=== PATIENT | female | born 1975 | race Two or more races ===

== ENCOUNTER 2021-02-28 07:57 | Emergency (ER) | payer BC, MEDICAID, SELFPAY ==
[~2021-02-28] VITALS: Ht 157.5 cm; Wt 62.4 kg
--- NOTE | 2021-02-28 08:12 | NUR ---
Task RN: pt reports that she has nbeen having intermittent chest burning x3 days afteer revcieving her first COVID vaccine. no SOB. pt reports that her B/P has been high, but hs has hx of same. pt has not been compliantt with her B/P meds at home. pink warm and dry. ambulatory. SO at bedside. Dr Osullivan at bedside for eval
[2021-02-28] MEDS ORDERED: ASPIRIN 81 MG TABLET CHEW PO ONE (08:30)
[2021-02-28] MEDS ORDERED: SODIUM CHLORIDE FLUSH 10ML SYR IVF ONE (08:30)
[2021-02-28] MEDS ORDERED: KETOROLAC 30 MG/1 ML IVPush ONE (08:30)
[2021-02-28] MEDS ORDERED: ASPIRIN 81 MG TABLET CHEW ONE (08:37)
[2021-02-28] MEDS ORDERED: KETOROLAC 30 MG/1 ML ONE (08:37)
[2021-02-28 08:43] LABS: BASOPHILS % (AUTO) 1 % (0-1); EOSINOPHILS % (AUTO) 2 % (1-7); LYMPHOCYTES % (AUTO) 25 % (22-44); MEAN CORPUSCULAR HEMOGLOBIN 29.9 pg (27.0-34.8); MEAN CORPUSCULAR HGB CONC 33.7 g/dL (32.4-35.8); MEAN PLATELET VOLUME 9.5 fL (7.4-10.4); MONOCYTES % (AUTO) 9 % (2-9); NEUTROPHILS % (AUTO) 64 % (42-75); PLATELET COUNT 249 x10^3/uL (130-400); RED BLOOD COUNT 4.79 x10^6/uL (3.82-5.3); RED CELL DISTRIBUTION WIDTH 13.4 % (9.6-15.2)
[2021-02-28 08:44] LABS: MD NO
[2021-02-28] MEDS ORDERED: hydrALAzine 20 MG/ML, 1ML ONE (08:48)
[2021-02-28 08:55] LABS: ALANINE AMINOTRANSFERASE 30 U/L (12-78); ALBUMIN 4.3 g/dL (3.4-5.0); ANION GAP 4 mmol/L (5-15); CALCIUM 9.7 mg/dL (8.5-10.1); CHLORIDE 109 mmol/L (98-107)
[2021-02-28 08:59] LABS: ALKALINE PHOSPHATASE 89 U/L (45-117); BILIRUBIN,TOTAL 0.5 mg/dL (0.2-1.0); TOTAL PROTEIN 8.5 g/dL (6.4-8.2); TROPONIN I < 0.015 ng/mL (0.000-0.045)
[2021-02-28] MEDS ORDERED: hydrALAzine 20 MG/ML, 1ML IV ONE (09:00)
[2021-02-28 10:13] VITALS: BP 145/77
--- NOTE | 2021-02-28 10:13 | NUR ---
BP IMPROVED AFTER MEDS.
--- NOTE | 2021-02-28 10:46 | NUR ---
Patient given discharge instructions and they have confirmed that they understand the instructions. Patient ambulatory with steady gait.
== END 2021-02-28 10:47 | disposition home or self-care (01) ==
LOC: ED 09:37
DX: R07.89 Other chest pain (principal); R94.31 Abnormal electrocardiogram [ECG] [EKG]; I10 Essential (primary) hypertension; Z90.89 Acquired absence of other organs; Z88.0 Allergy status to penicillin; Z88.1 Allergy status to other antibiotic agents
CPT/HCPCS: 36415; 71045; 80053; 84484; 84703; 85025; 85379; 93005; 96374; 96375; 99285; J0360; J1885